=== PATIENT | female | born 1985 | race American Indian/Alaskan Native ===

== ENCOUNTER 2018-01-05 17:55 | Observation (INO) | payer BC ==
[2018-01-05] MEDS ORDERED: Sodium Chloride 0.9% 1,000 ML IV ONE (18:20)
--- NOTE | 2018-01-05 18:22 | EDM.PDOC ---
ED HPI GENERAL MEDICAL PROBLEM - General Chief Complaint: Abdominal Pain Stated Complaint: ABDOMINAL PAIN Time Seen by Provider: 01/05/18 18:19 Source of Information: Reports: Patient History Limitations: Reports: No Limitations - History of Present Illness INITIAL COMMENTS - FREE TEXT/NARRATIVE: HISTORY AND PHYSICAL: History of present illness: Patient is a 32-year-old female who presents to the emergency room today with complaints of upper abdominal pain, nausea, vomiting and dizziness since this morning. She denies any fever, chills, chest pain, shortness of breath or cough. Denies any diarrhea or constipation. States she did have a normal bowel movement this afternoon and did not note any blood. Denies any dysuria or changes in her menstrual cycle. reports that she has a history of stomach ulcers; but is unsure as they have come from the [facility] and do not have labs/imaging that have been done to "actually diagnose this". Review of systems: As per history of present illness and below otherwise all systems reviewed and negative. Past medical history: As per history of present illness and as reviewed below otherwise noncontributory. Surgical history: As per history of present illness and as reviewed below otherwise noncontributory. Social history: No reported history of drug or alcohol abuse. Family history: As per history of present illness and as reviewed below otherwise noncontributory. Physical exam: General: Well-developed and well-nourished although thin, 32-year-old female. Alert and oriented. Nontoxic appearing and mildly uncomfortable. HEENT: Atraumatic, normocephalic, pupils equal and reactive bilaterally, negative for conjunctival pallor or scleral icterus, mucous membranes moist, throat clear, neck supple, nontender, trachea midline. No drooling or trismus noted. No meningeal signs Lungs: Clear to auscultation, breath sounds equal bilaterally, chest nontender. Heart: S1S2, regular rate and rhythm without overt murmur Abdomen: Soft, nondistended, epigastric tenderness with palpation. Negative for masses or hepatosplenomegaly. Negative for costovertebral tenderness. Pelvis: Stable nontender. Genitourinary: Deferred. Rectal: Deferred. Skin: Intact, warm, dry. No lesions or rashes noted. Extremities: Atraumatic, negative for cords or calf pain. Neurovascular unremarkable. Neuro: Awake, alert, oriented. Cranial nerves II through XII unremarkable. Cerebellum unremarkable. Motor and sensory unremarkable throughout. Exam nonfocal. Notes: After IV fluids the patient's blood pressure is coming up. Labs are currently pending. 2109: WBC 18, CT shows appendicitis with stranding. Patient was made aware of these findings. Rates pain still at 7/10. 2119: Dr. Calderon was consulted on this case. She will come in to evaluate patient. 2129: Dr Calderon here to see patient. Diagnostics: CBC, CMP, H.Pylori, UA, HCGU, CT abd/pelvis Therapeutics: NS, Zofran, GI cocktail Impression: + H.Pylori Appendicitis Plan: Patient will be under Dr Calderon's care for pending surgery Definitive disposition and diagnosis as appropriate pending reevaluation and review of above. Onset: Today Duration: Hour(s): Location: Reports: Abdomen Quality: Reports: Sharp Severity: Severe Associated Symptoms: Reports: Nausea/Vomiting, Other (Dizziness). Denies: Confusion, Chest Pain, Cough, cough w sputum, Diaphoresis, Fever/Chills, Headaches, Loss of Appetite, Rash, Seizure, Shortness of Breath, Syncope, Weakness Left Upper Abdominal Pain Score (Numeric/FACES): 8 - Related Data Allergies Allergy/AdvReac Type Severity Reaction Status Date / Time No Known Allergies Allergy Verified 01/05/18 18:50 Home Meds: Home Meds . [No Known Home Meds] 01/05/18 [History] ED ROS GENERAL - Review of Systems Review Of Systems: ROS reveals no pertinent complaints other than HPI. ED EXAM, GI/ABD - Physical Exam Exam: See Below (See dictation) Course - Vital Signs Last Recorded V/S: Last Vital Signs Temp 99.8 F 01/05/18 18:51 Pulse 61 01/05/18 19:26 Resp 18 01/05/18 19:26 BP 82/47 L 01/05/18 19:26 Pulse Ox 100 01/05/18 19:26 - Orders/Labs/Meds Orders: Active Orders 24 hr Category Date Time Status Abdomen Pelvis w Cont [CT] Stat Exams 01/05/18 18:59 Taken HCG QUALITATIVE,URINE [URCHEM] Stat Lab 01/05/18 18:19 Ordered UA W/MICROSCOPIC [URIN] Stat Lab 01/05/18 18:19 Ordered Lactated Ringers [Ringers, Lactated] 1,000 ml Med 01/05/18 21:30 Ordered IV ASDIRECTED Medication Orders Lactated Ringer's (Ringers, Lactated) 1,000 mls @ 200 mls/hr IV ASDIRECTED ANDRZEJ Labs: Laboratory Tests 01/05/18 01/05/18 01/05/18 Range/Units 18:32 18:32 18:32 WBC 18.23 H (4.0-11.0) K/uL RBC 4.54 (4.30-5.90) M/uL Hgb 13.3 (12.0-16.0) g/dL Hct 38.6 (36.0-46.0) % MCV 85.0 (80.0-98.0) fL MCH 29.3 (27.0-32.0) pg MCHC 34.5 (31.0-37.0) g/dL RDW Std Deviation 41.8 (28.0-62.0) fl RDW Coeff of Harsha 14 (11.0-15.0) % Plt Count 252 (150-400) K/uL MPV 9.90 (7.40-12.00) fL Neut % (Auto) 87.7 H (48.0-80.0) % Lymph % (Auto) 4.8 L (16.0-40.0) % [place] % (Auto) 7.3 (0.0-15.0) % Eos % (Auto) 0.0 (0.0-7.0) % Baso % (Auto) 0.2 (0.0-1.5) % Neut # (Auto) 16.0 H (1.4-5.7) K/uL Lymph # (Auto) 0.9 (0.6-2.4) K/uL [place] # (Auto) 1.3 H (0.0-0.8) K/uL Eos # (Auto) 0.0 (0.0-0.7) K/uL Baso # (Auto) 0.0 (0.0-0.1) K/uL Nucleated RBC % 0.0 /100WBC Nucleated RBCs # 0 K/uL Sodium 139 (136-145) mmol/L Potassium 3.7 (3.5-5.1) mmol/L Chloride 104 (98-107) mmol/L Carbon Dioxide 21.9 (21.0-32.0) mmol/L BUN 13 (7.0-18.0) mg/dL Creatinine 0.7 (0.6-1.0) mg/dL Est Cr Clr Drug Dosing 84.15 mL/min Estimated GFR (MDRD) > 60.0 ml/min Glucose 111 H (74-106) mg/dL Calcium 8.9 (8.5-10.1) mg/dL Total Bilirubin 1.4 H (0.2-1.0) mg/dL AST 55 H (15-37) IU/L ALT 32 (14-63) IU/L Alkaline Phosphatase 94 (46-116) U/L Total Protein 7.7 (6.4-8.2) g/dL Albumin 4.3 (3.4-5.0) g/dL Globulin 3.4 (2.0-3.5) g/dL Albumin/Globulin Ratio 1.3 (1.3-2.8) HCG, Qual (NEG) Urine Color Urine Appearance Urine pH (5.0-8.0) Ur Specific [place] (1.001-1.035) Urine Protein (NEGATIVE) mg/dL Urine Glucose (UA) (NEGATIVE) mg/dL Urine Ketones (NEGATIVE) mg/dL Urine Occult Blood (NEGATIVE) Urine Nitrite (NEGATIVE) Urine Bilirubin (NEGATIVE) Urine Urobilinogen (<2.0) EU/dL Ur Leukocyte Esterase (NEGATIVE) Urine RBC (0-2/HPF) Urine WBC (0-5/HPF) Ur Epithelial Cells (NONE-FEW) Urine Bacteria (NEGATIVE) Urine Mucus (NONE-MOD) Urine HCG, Qual (NEGATIVE) H. pylori IgG Antibody POSITIVE H (NEG) 01/05/18 01/05/18 01/05/18 Range/Units 18:32 21:20 21:20 WBC (4.0-11.0) K/uL RBC (4.30-5.90) M/uL Hgb (12.0-16.0) g/dL Hct (36.0-46.0) % MCV (80.0-98.0) fL MCH (27.0-32.0) pg MCHC (31.0-37.0) g/dL RDW Std Deviation (28.0-62.0) fl RDW Coeff of Harsha (11.0-15.0) % Plt Count (150-400) K/uL MPV (7.40-12.00) fL Neut % (Auto) (48.0-80.0) % Lymph % (Auto) (16.0-40.0) % [place] % (Auto) (0.0-15.0) % Eos % (Auto) (0.0-7.0) % Baso % (Auto) (0.0-1.5) % Neut # (Auto) (1.4-5.7) K/uL Lymph # (Auto) (0.6-2.4) K/uL [place] # (Auto) (0.0-0.8) K/uL Eos # (Auto) (0.0-0.7) K/uL Baso # (Auto) (0.0-0.1) K/uL Nucleated RBC % /100WBC Nucleated RBCs # K/uL Sodium (136-145) mmol/L Potassium (3.5-5.1) mmol/L Chloride (98-107) mmol/L Carbon Dioxide (21.0-32.0) mmol/L BUN (7.0-18.0) mg/dL Creatinine (0.6-1.0) mg/dL Est Cr Clr Drug Dosing mL/min Estimated GFR (MDRD) ml/min Glucose (74-106) mg/dL Calcium (8.5-10.1) mg/dL Total Bilirubin (0.2-1.0) mg/dL AST (15-37) IU/L ALT (14-63) IU/L Alkaline Phosphatase (46-116) U/L Total Protein (6.4-8.2) g/dL Albumin (3.4-5.0) g/dL Globulin (2.0-3.5) g/dL Albumin/Globulin Ratio (1.3-2.8) HCG, Qual NEGATIVE (NEG) Urine Color YELLOW Urine Appearance CLEAR Urine pH 6.5 (5.0-8.0) Ur Specific [place] 1.015 (1.001-1.035) Urine Protein NEGATIVE (NEGATIVE) mg/dL Urine Glucose (UA) NEGATIVE (NEGATIVE) mg/dL Urine Ketones >=80 (NEGATIVE) mg/dL Urine Occult Blood NEGATIVE (NEGATIVE) Urine Nitrite NEGATIVE (NEGATIVE) Urine Bilirubin NEGATIVE (NEGATIVE) Urine Urobilinogen 0.2 (<2.0) EU/dL Ur Leukocyte Esterase NEGATIVE (NEGATIVE) Urine RBC NONE SEEN (0-2/HPF) Urine WBC 0-1 (0-5/HPF) Ur Epithelial Cells FEW (NONE-FEW) Urine Bacteria RARE (NEGATIVE) Urine Mucus LIGHT (NONE-MOD) Urine HCG, Qual NEGATIVE (NEGATIVE) H. pylori IgG Antibody (NEG) Meds: Medications Generic Name Dose Route Start Last Admin Trade Name Freq PRN Reason Stop Dose Admin Lactated Ringer's 1,000 mls @ 200 mls/hr 01/05/18 21:30 Ringers, Lactated IV ASDIRECTED ANDRZEJ Discontinued Medications Generic Name Dose Route Start Last Admin Trade Name Freq PRN Reason Stop Dose Admin Al Hydroxide/Mg Hydroxide 15 0 ml 01/05/18 18:29 01/05/18 19:30 ml/ Metoclopramide HCl 5 mg/ PO 01/05/18 18:30 5 each Lidocaine HCl 5 ml ONETIME ONE Administration Famotidine 20 mg 01/05/18 19:41 01/05/18 19:46 Pepcid IVPUSH 01/05/18 19:42 20 mg ONETIME ONE Administration Sodium Chloride 1,000 mls @ 999 mls/hr 01/05/18 18:20 01/05/18 19:24 Normal Saline IV 01/05/18 19:20 999 mls/hr STAT ONE Administration Iopamidol 60 ml 01/05/18 20:26 01/05/18 20:37 Isovue Multipack-370 (76%) IVPUSH 01/05/18 20:27 60 ml ONETIME STA Administration Morphine Sulfate 2 mg 01/05/18 19:41 01/05/18 20:58 Morphine IVPUSH 01/05/18 19:42 2 mg ONETIME ONE Administration Morphine Sulfate 2 mg 01/05/18 21:19 Morphine IVPUSH 01/05/18 21:20 ONETIME ONE Departure - Departure Time of Disposition: 21:49 Disposition: Still A Patient 32 Clinical Impression: H. pylori infection Appendicitis Qualifiers: Appendicitis type: acute appendicitis Acute appendicitis type: unspecified acute appendicitis type Qualified Code(s): K35.80 - Unspecified acute appendicitis - Discharge Information Referrals: PCP,None [Primary Care Provider] - Forms: ED Department Discharge - My Orders Last 24 Hours: My Active Orders 01/05/18 18:19 HCG QUALITATIVE,URINE [URCHEM] Stat UA W/MICROSCOPIC [URIN] Stat 01/05/18 18:59 Abdomen Pelvis w Cont [CT] Stat 01/05/18 21:30 Lactated Ringers [Ringers, Lactated] 1,000 ml IV ASDIRECTED - Assessment/Plan Last 24 Hours: My Active Orders 01/05/18 18:19 HCG QUALITATIVE,URINE [URCHEM] Stat UA W/MICROSCOPIC [URIN] Stat 01/05/18 18:59 Abdomen Pelvis w Cont [CT] Stat 01/05/18 21:30 Lactated Ringers [Ringers, Lactated] 1,000 ml IV ASDIRECTED
[2018-01-05] MEDS ORDERED: Alum Hydrox/Mag Hydrox/Simeth 15 ML, Metoclopramide 5 MG, Lidocaine 2% 5 ML PO ONE ×3 (18:29)
[2018-01-05 19:05] LABS: CHLORIDE,CL 104 mmol/L (98-107); SODIUM,NA 139 mmol/L (136-145)
[2018-01-05] MEDS ORDERED: Morphine 2 MG/ML Syringe IVPUSH ONE ×2 (19:41→21:19)
[2018-01-05] MEDS ORDERED: Famotidine 20 MG/2 ML SDV IVPUSH ONE (19:41)
[2018-01-05] MEDS ORDERED: Iopamidol 755 MG/ML 500 ML Multipack Bottle IVPUSH STA (20:26)
[2018-01-05] MEDS ORDERED: Lactated Ringers 1,000 ML IV SCH ×2 (21:30→22:00)
[2018-01-05] MEDS ORDERED: Piperacillin/Tazobactam 3.375 GM in Sodium Chloride 0.9% 50 ML IV SCH (22:00)
--- NOTE | 2018-01-05 22:02 | PCM.HP ---
H&P History of Present Illness - General Date of Service: 01/05/18 Admit Problem/Dx: Admission Diagnosis/Problem Admission Diagnosis/Problem Appendicitis Source of Information: Patient History Limitations: Reports: No Limitations - History of Present Illness Initial Comments - Free Text/Narative: Patient woke up this morning with epigastric abdominal pain. She c/o subjective fevers, chills, nausea and vomiting. The pain is made worse with straightening her torso. She was told by someone she had ulcers and should come in and be seen. Her WBC is 18K with a left shift. A CT of the abdomen pelvis showed acute non-perforated appendicitis. Left Upper Abdominal Pain Score (Numeric/FACES): 8 - Related Data Allergies/Adverse Reactions: Allergies Allergy/AdvReac Type Severity Reaction Status Date / Time No Known Allergies Allergy Verified 01/05/18 18:50 Home Medications: Home Meds . [No Known Home Meds] 01/05/18 [History] Past Medical History - Past Health History Medical/Surgical History: Denies Medical/Surgical History - Past Surgical History Head Surgeries/Procedures: Reports: Other (See Below) (cyst removal from face) Social & Family History - Tobacco Use Smoking Status *Q: Never Smoker Second Hand Smoke Exposure: No - Recreational Drug Use Recreational Drug Use: No H&P Review of Systems - Review of Systems: Review Of Systems: ROS reveals no pertinent complaints other than HPI. Exam - Exam Exam: See Below - Vital Signs Vital Signs: Last Vital Signs Temp 37.7 C 01/05/18 18:51 Pulse 61 01/05/18 19:26 Resp 18 01/05/18 19:26 BP 82/47 L 01/05/18 19:26 Pulse Ox 100 01/05/18 19:26 Weight: 45.359 kg - Exam General: Alert, Oriented, Moderate Distress HEENT: Conjunctiva Clear, Hearing Intact, Mucosa Moist & Aspers, Posterior Pharynx Clear, Pupils Equal, Pupils Reactive Lungs: Clear to Auscultation, Normal Respiratory Effort Cardiovascular: Regular Rate, Regular Rhythm GI/Abdominal Exam: Soft, No Distention, Guarding (RLQ), Rebound (RLQ) - Patient Data Lab Results Last 24 hrs: Laboratory Results - last 24 hr 01/05/18 01/05/18 01/05/18 Range/Units 18:32 18:32 18:32 WBC 18.23 H (4.0-11.0) K/uL RBC 4.54 (4.30-5.90) M/uL Hgb 13.3 (12.0-16.0) g/dL Hct 38.6 (36.0-46.0) % MCV 85.0 (80.0-98.0) fL MCH 29.3 (27.0-32.0) pg MCHC 34.5 (31.0-37.0) g/dL RDW Std Deviation 41.8 (28.0-62.0) fl RDW Coeff of Harsha 14 (11.0-15.0) % Plt Count 252 (150-400) K/uL MPV 9.90 (7.40-12.00) fL Neut % (Auto) 87.7 H (48.0-80.0) % Lymph % (Auto) 4.8 L (16.0-40.0) % [place] % (Auto) 7.3 (0.0-15.0) % Eos % (Auto) 0.0 (0.0-7.0) % Baso % (Auto) 0.2 (0.0-1.5) % Neut # (Auto) 16.0 H (1.4-5.7) K/uL Lymph # (Auto) 0.9 (0.6-2.4) K/uL [place] # (Auto) 1.3 H (0.0-0.8) K/uL Eos # (Auto) 0.0 (0.0-0.7) K/uL Baso # (Auto) 0.0 (0.0-0.1) K/uL Nucleated RBC % 0.0 /100WBC Nucleated RBCs # 0 K/uL Sodium 139 (136-145) mmol/L Potassium 3.7 (3.5-5.1) mmol/L Chloride 104 (98-107) mmol/L Carbon Dioxide 21.9 (21.0-32.0) mmol/L BUN 13 (7.0-18.0) mg/dL Creatinine 0.7 (0.6-1.0) mg/dL Est Cr Clr Drug Dosing 84.15 mL/min Estimated GFR (MDRD) > 60.0 ml/min Glucose 111 H (74-106) mg/dL Calcium 8.9 (8.5-10.1) mg/dL Total Bilirubin 1.4 H (0.2-1.0) mg/dL AST 55 H (15-37) IU/L ALT 32 (14-63) IU/L Alkaline Phosphatase 94 (46-116) U/L Total Protein 7.7 (6.4-8.2) g/dL Albumin 4.3 (3.4-5.0) g/dL Globulin 3.4 (2.0-3.5) g/dL Albumin/Globulin Ratio 1.3 (1.3-2.8) HCG, Qual (NEG) Urine Color Urine Appearance Urine pH (5.0-8.0) Ur Specific [place] (1.001-1.035) Urine Protein (NEGATIVE) mg/dL Urine Glucose (UA) (NEGATIVE) mg/dL Urine Ketones (NEGATIVE) mg/dL Urine Occult Blood (NEGATIVE) Urine Nitrite (NEGATIVE) Urine Bilirubin (NEGATIVE) Urine Urobilinogen (<2.0) EU/dL Ur Leukocyte Esterase (NEGATIVE) Urine RBC (0-2/HPF) Urine WBC (0-5/HPF) Ur Epithelial Cells (NONE-FEW) Urine Bacteria (NEGATIVE) Urine Mucus (NONE-MOD) Urine HCG, Qual (NEGATIVE) H. pylori IgG Antibody POSITIVE H (NEG) 01/05/18 01/05/18 01/05/18 Range/Units 18:32 21:20 21:20 WBC (4.0-11.0) K/uL RBC (4.30-5.90) M/uL Hgb (12.0-16.0) g/dL Hct (36.0-46.0) % MCV (80.0-98.0) fL MCH (27.0-32.0) pg MCHC (31.0-37.0) g/dL RDW Std Deviation (28.0-62.0) fl RDW Coeff of Harsha (11.0-15.0) % Plt Count (150-400) K/uL MPV (7.40-12.00) fL Neut % (Auto) (48.0-80.0) % Lymph % (Auto) (16.0-40.0) % [place] % (Auto) (0.0-15.0) % Eos % (Auto) (0.0-7.0) % Baso % (Auto) (0.0-1.5) % Neut # (Auto) (1.4-5.7) K/uL Lymph # (Auto) (0.6-2.4) K/uL [place] # (Auto) (0.0-0.8) K/uL Eos # (Auto) (0.0-0.7) K/uL Baso # (Auto) (0.0-0.1) K/uL Nucleated RBC % /100WBC Nucleated RBCs # K/uL Sodium (136-145) mmol/L Potassium (3.5-5.1) mmol/L Chloride (98-107) mmol/L Carbon Dioxide (21.0-32.0) mmol/L BUN (7.0-18.0) mg/dL Creatinine (0.6-1.0) mg/dL Est Cr Clr Drug Dosing mL/min Estimated GFR (MDRD) ml/min Glucose (74-106) mg/dL Calcium (8.5-10.1) mg/dL Total Bilirubin (0.2-1.0) mg/dL AST (15-37) IU/L ALT (14-63) IU/L Alkaline Phosphatase (46-116) U/L Total Protein (6.4-8.2) g/dL Albumin (3.4-5.0) g/dL Globulin (2.0-3.5) g/dL Albumin/Globulin Ratio (1.3-2.8) HCG, Qual NEGATIVE (NEG) Urine Color YELLOW Urine Appearance CLEAR Urine pH 6.5 (5.0-8.0) Ur Specific [place] 1.015 (1.001-1.035) Urine Protein NEGATIVE (NEGATIVE) mg/dL Urine Glucose (UA) NEGATIVE (NEGATIVE) mg/dL Urine Ketones >=80 (NEGATIVE) mg/dL Urine Occult Blood NEGATIVE (NEGATIVE) Urine Nitrite NEGATIVE (NEGATIVE) Urine Bilirubin NEGATIVE (NEGATIVE) Urine Urobilinogen 0.2 (<2.0) EU/dL Ur Leukocyte Esterase NEGATIVE (NEGATIVE) Urine RBC NONE SEEN (0-2/HPF) Urine WBC 0-1 (0-5/HPF) Ur Epithelial Cells FEW (NONE-FEW) Urine Bacteria RARE (NEGATIVE) Urine Mucus LIGHT (NONE-MOD) Urine HCG, Qual NEGATIVE (NEGATIVE) H. pylori IgG Antibody (NEG) Result Diagrams: 01/05/18 18:32 01/05/18 18:32 - Problem List (1) Appendicitis SNOMED Code(s): 80698994 ICD Code: K37 - UNSPECIFIED APPENDICITIS Status: Acute Current Visit: Yes Qualifiers: Appendicitis type: acute appendicitis Acute appendicitis type: unspecified acute appendicitis type Qualified Code(s): K35.80 - Unspecified acute appendicitis (2) H. pylori infection SNOMED Code(s): 362218269 ICD Code: A04.8 - OTHER SPECIFIED BACTERIAL INTESTINAL INFECTIONS Status: Acute Current Visit: Yes Problem List Initiated/Reviewed/Updated: Yes Orders Last 24hrs: Active Orders 24 hr Category Date Time Status Patient Status [ADT] Routine ADT 01/05/18 21:55 Ordered Verify Patient Consent Obtain [RC] ASDIRECTED Care 01/05/18 21:55 Ordered Abdomen Pelvis w Cont [CT] Stat Exams 01/05/18 18:59 Taken HCG QUALITATIVE,URINE [URCHEM] Stat Lab 01/05/18 21:20 Ordered UA W/MICROSCOPIC [URIN] Stat Lab 01/05/18 21:20 Ordered Lactated Ringers @ 125 MLS/HR(1000ml) Med 01/05/18 22:00 Ordered Lactated Ringers [Ringers, Lactated] 1,000 ml IV ASDIRECTED Lactated Ringers [Ringers, Lactated] 1,000 ml Med 01/05/18 21:30 Active IV ASDIRECTED Piperacillin/Tazobactam [Piperacil-Tazobact] 3.375 gm Med 01/05/18 22:00 Ordered Sodium Chloride 0.9% [Normal Saline] 50 ml IV Q8H Sequential Compression Device [OM.PC] Routine Oth 01/05/18 21:55 Ordered Resuscitation Status Routine Resus Stat 01/05/18 21:55 Ordered Medication Orders Lactated Ringer's (Ringers, Lactated) 1,000 mls @ 200 mls/hr IV ASDIRECTED ANDRZEJ Last Admin: 01/05/18 21:54 Dose: 200 mls/hr Lactated Ringer's (Ringers, Lactated) 1,000 mls @ 125 mls/hr IV ASDIRECTED ANDRZEJ Piperacillin Sod/Tazobactam (Sod 3.375 gm/ Sodium Chloride) 50 mls @ 100 mls/ hr IV Q8H ANDRZEJ Assessment/Plan Comment:: Patient is positive for H pylori but also has acute appendicitis. I discussed the pathophysiology of appendicitis. I explained that she will need surgery for this. We discussed the laparoscopic and open approaches. I will attempt this laparoscopically but should I be unable to complete it safely I will convert to open. We discussed the expected perioperative course and risks including bleeding, infection or damage to surrounding structures. The patient verbalized understanding and wishes to proceed.
[2018-01-05] MEDS ORDERED: Rocuronium 10 MG/ML 10 ML Syringe ONE (22:16)
[2018-01-05] MEDS ORDERED: Ondansetron 4 MG/2 ML SDV ONE (22:16)
[2018-01-05] MEDS ORDERED: fentaNYL 250 MCG/5 ML SDV ONE (22:16)
[2018-01-05] MEDS ORDERED: Lidocaine 2% 5 ML SDV ONE (22:16)
[2018-01-05] MEDS ORDERED: Midazolam 1 MG/ML 2 ML SDV ONE (22:16)
[2018-01-05] MEDS ORDERED: Propofol 200 MG/20 ML SDV ONE (22:16)
[2018-01-05] MEDS ORDERED: Bupivacaine 0.5% 30 ML SDV ONE (22:19)
[2018-01-05] MEDS ORDERED: ePHEDrine 50 MG/ML SDV ONE (22:52)
--- NOTE | 2018-01-05 23:14 | PCM.PREANE ---
Preanesthetic Assessment - Procedure Proposed Procedure: lap appy - Anesthesia/Transfusion/Family Hx Anesthesia History: Prior Anesthesia Without Reaction Family History of Anesthesia Reaction: No Transfusion History: No Prior Transfusion(s) - Review of Systems General: No Symptoms Pulmonary: No Symptoms Cardiovascular: No Symptoms Gastrointestinal: Abdominal Pain, Nausea, Vomiting Neurological: No Symptoms Other: Reports: None - Physical Assessment NPO Status Date: 01/05/18 NPO Status Time: 10:00 O2 Sat by Pulse Oximetry: 98 Respiratory Rate: 19 Vital Signs: Last Vital Signs Temp 37.7 C 01/05/18 18:51 Pulse 97 01/05/18 22:05 Resp 19 01/05/18 22:05 BP 88/55 L 01/05/18 22:05 Pulse Ox 98 01/05/18 22:05 Height: 5 ft 2 in Weight: 45.359 kg ASA Class: 1E Mental Status: Alert & Oriented x3 Airway Class: Mallampati = 1 Dentition: Reports: Normal Dentition Thyro-Mental Finger Breadths: 3 Mouth Opening Finger Breadths: 3 ROM/Head Extension: Full - Lab Values: Laboratory Last Values WBC 18.23 K/uL (4.0-11.0) H 01/05/18 18: RBC 4.54 M/uL (4.30-5.90) 01/05/18 18: Hgb 13.3 g/dL (12.0-16.0) 01/05/18 18:32 Hct 38.6 % (36.0-46.0) 01/05/18 18: MCV 85.0 fL (80.0-98.0) 01/05/18 18: MCH 29.3 pg (27.0-32.0) 01/05/18 18: MCHC 34.5 g/dL (31.0-37.0) 01/05/18 18: RDW Std Deviation 41.8 fl (28.0-62.0) 01/05/18 18: RDW Coeff of Harsha 14 % (11.0-15.0) 01/05/18 18: Plt Count 252 K/uL (150-400) 01/05/18 18: MPV 9.90 fL (7.40-12.00) 01/05/18 18: Neut % (Auto) 87.7 % (48.0-80.0) H 01/05/18 18:32 Lymph % (Auto) 4.8 % (16.0-40.0) L 01/05/18 18:32 [place] % (Auto) 7.3 % (0.0-15.0) 01/05/18 18:32 Eos % (Auto) 0.0 % (0.0-7.0) 01/05/18: Baso % (Auto) 0.2 % (0.0-1.5) 01/05/18 18:32 Neut # (Auto) 16.0 K/uL (1.4-5.7) H 01/05/18 18:32 Lymph # (Auto) 0.9 K/uL (0.6-2.4) 01/05/18 18:32 [place] # (Auto) 1.3 K/uL (0.0-0.8) H 01/05/18 18:32 Eos # (Auto) 0.0 K/uL (0.0-0.7) 01/05/18 18: Baso # (Auto) 0.0 K/uL (0.0-0.1) 01/05/18: Nucleated RBC % 0.0 /100WBC 01/05/18: Nucleated RBCs # 0 K/uL 01/05/18 18:32 Sodium 139 mmol/L (136-145) 01/05/18:32 Potassium 3.7 mmol/L (3.5-5.1) 01/05/18: Chloride 104 mmol/L (98-107) 01/05/18: Carbon Dioxide 21.9 mmol/L (21.0-32.0) 01/05/18: BUN 13 mg/dL (7.0-18.0) 01/05/18: Creatinine 0.7 mg/dL (0.6-1.0) 01/05/18 18: Est Cr Clr Drug Dosing 84.15 mL/min 01/05/18 18:32 Estimated GFR (MDRD) > 60.0 ml/min 01/05/18 18:32 Glucose 111 mg/dL (74-106) H 01/05/18 18: Calcium 8.9 mg/dL (8.5-10.1) 01/05/18 18:32 Total Bilirubin 1.4 mg/dL (0.2-1.0) H 01/05/18 18:32 AST 55 IU/L (15-37) H 01/05/18 18:32 ALT 32 IU/L (14-63) 01/05/18 18:32 Alkaline Phosphatase 94 U/L (46-116) 01/05/18 18:32 Total Protein 7.7 g/dL (6.4-8.2) 01/05/18 18:32 Albumin 4.3 g/dL (3.4-5.0) 01/05/18 18:32 Globulin 3.4 g/dL (2.0-3.5) 01/05/18 18:32 Albumin/Globulin Ratio 1.3 (1.3-2.8) 01/05/18 18:32 HCG, Qual NEGATIVE (NEG) 01/05/18 18:32 Urine Color YELLOW 01/05/18 21:20 Urine Appearance CLEAR 01/05/18 21:20 Urine pH 6.5 (5.0-8.0) 01/05/18 21:20 Ur Specific [place] 1.015 (1.001-1.035) 01/05/18 21:20 Urine Protein NEGATIVE mg/dL (NEGATIVE) 01/05/18 21:20 Urine Glucose (UA) NEGATIVE mg/dL (NEGATIVE) 01/05/18 21:20 Urine Ketones >=80 mg/dL (NEGATIVE) 01/05/18 21:20 Urine Occult Blood NEGATIVE (NEGATIVE) 01/05/18 21:20 Urine Nitrite NEGATIVE (NEGATIVE) 01/05/18 21:20 Urine Bilirubin NEGATIVE (NEGATIVE) 01/05/18 21:20 Urine Urobilinogen 0.2 EU/dL (<2.0) 01/05/18 21:20 Ur Leukocyte Esterase NEGATIVE (NEGATIVE) 01/05/18 21:20 Urine RBC NONE SEEN (0-2/HPF) 01/05/18 21:20 Urine WBC 0-1 (0-5/HPF) 01/05/18 21:20 Ur Epithelial Cells FEW (NONE-FEW) 01/05/18 21:20 Urine Bacteria RARE (NEGATIVE) 01/05/18 21:20 Urine Mucus LIGHT (NONE-MOD) 01/05/18 21:20 Urine HCG, Qual NEGATIVE (NEGATIVE) 01/05/18 21:20 H. pylori IgG Antibody POSITIVE (NEG) H 01/05/18 18:32 - Allergies Allergies/Adverse Reactions: Allergies Allergy/AdvReac Type Severity Reaction Status Date / Time No Known Allergies Allergy Verified 01/05/18 18:50 - Blood Blood Available: No - Acknowledgements Anesthesia Type Planned: General Anesthesia Pt an Appropriate Candidate for the Planned Anesthesia: Yes Alternatives and Risks of Anesthesia Discussed w Pt/Guardian: Yes Pt/Guardian Understands and Agrees with Anesthesia Plan: Yes PreAnesthesia Questionnaire - Past Health History Medical/Surgical History: Denies Medical/Surgical History - Past Surgical History Head Surgeries/Procedures: Reports: Other (See Below) (cyst removal from face) - SUBSTANCE USE Smoking Status *Q: Never Smoker Second Hand Smoke Exposure: No Recreational Drug Use History: No - HOME MEDS Home Medications: Home Meds . [No Known Home Meds] 01/05/18 [History] - CURRENT (IN HOUSE) MEDS Current Meds: Current Medications Lactated Ringer's (Ringers, Lactated) 1,000 mls @ 200 mls/hr IV ASDIRECTED ANDRZEJ Last Infusion: 01/05/18 22:00 Dose: 999 mls/hr Lactated Ringer's (Ringers, Lactated) 1,000 mls @ 125 mls/hr IV ASDIRECTED ANDRZEJ Piperacillin Sod/Tazobactam (Sod 3.375 gm/ Sodium Chloride) 50 mls @ 100 mls/ hr IV Q8H [facility] Last Admin: 01/05/18 22:04 Dose: 100 mls/hr Discontinued Medications Bupivacaine HCl (Marcaine 0.5%) Confirm Administered Dose 30 ml .ROUTE .STK-MED ONE Stop: 01/05/18 22:20 Al Hydroxide/Mg Hydroxide 15 ml/ Metoclopramide HCl 5 mg/Lidocaine HCl 5 ml 0 ml PO ONETIME ONE Stop: 01/05/18 18:30 Last Admin: 01/05/18 19:30 Dose: 5 each Ephedrine Sulfate (Ephedrine Sulfate) Confirm Administered Dose 50 mg .ROUTE .STK-MED ONE Stop: 01/05/18 22:53 Famotidine (Pepcid) 20 mg IVPUSH ONETIME ONE Stop: 01/05/18 19:42 Last Admin: 01/05/18 19:46 Dose: 20 mg Fentanyl (Sublimaze) Confirm Administered Dose 250 mcg .ROUTE .STK-MED ONE Stop: 01/05/18 22:17 Sodium Chloride (Normal Saline) 1,000 mls @ 999 mls/hr IV STAT ONE Stop: 01/05/18 19:20 Last Admin: 01/05/18 19:24 Dose: 999 mls/hr Acetaminophen (Ofirmev) Confirm Administered Dose 100 mls @ as directed IV .STK- MED ONE Stop: 01/05/18 22:21 Iopamidol (Isovue Multipack-370 (76%)) 60 ml IVPUSH ONETIME STA Stop: 01/05/18 20:27 Last Admin: 01/05/18 20:37 Dose: 60 ml Lidocaine (Xylocaine-Mpf 2%) Confirm Administered Dose 5 ml .ROUTE .STK-MED ONE Stop: 01/05/18 22:17 Midazolam HCl (Versed 1 Mg/Ml) Confirm Administered Dose 2 mg .ROUTE .STK-MED ONE Stop: 01/05/18 22:17 Morphine Sulfate (Morphine) 2 mg IVPUSH ONETIME ONE Stop: 01/05/18 19:42 Last Admin: 01/05/18 20:58 Dose: 2 mg Morphine Sulfate (Morphine) 2 mg IVPUSH ONETIME ONE Stop: 01/05/18 21:20 Ondansetron HCl (Zofran) Confirm Administered Dose 4 mg .ROUTE .STK-MED ONE Stop: 01/05/18 22:17 Propofol (Diprivan 20 Ml) Confirm Administered Dose 200 mg .ROUTE .STK-MED ONE Stop: 01/05/18 22:17 Rocuronium [place] (Zemuron) Confirm Administered Dose 100 mg .ROUTE .STK-MED ONE Stop: 01/05/18 22:17
[2018-01-05] MEDS ORDERED: Dexamethasone 4 MG/ML 5 ML MDV ONE (23:39)
--- NOTE | 2018-01-05 23:57 | PCM.OPNOTE ---
- General Post-Op/Procedure Note Date of Surgery/Procedure: 01/05/18 Operative Procedure(s): Laparoscopic appendectomy Findings: Dense adhesions of the cecum to the lateral wall of the abdomen. Non perforated appendicitis. Pre Op Diagnosis: Appendicitis Post-Op Diagnosis: Appendicitis, intra-abdominal adhesions Anesthesia Technique: General ET Tube Primary Surgeon: Bhumi Calderon Fluid Replacement, Intraop: 450 Output, Urine Amount: 500 EBL in mLs: 10 Condition: Fair Free Text/Narrative:: Intake & Output 01/05/18 01/05/18 01/06/18 14:59 22:59 06:59 Intake Total 990 Balance 990
[2018-01-05] MEDS ORDERED: diphenhydrAMINE 50 MG/ML SDV IVPUSH PRN (23:59)
[2018-01-05] MEDS ORDERED: HYDROmorphone 2 MG/ML SDV IVPUSH PRN (23:59)
[2018-01-05] MEDS ORDERED: Ondansetron 4 MG/2 ML SDV IVPUSH PRN (23:59)
[2018-01-06] MEDS ORDERED: CLARITHROMYCIN 250 MG/5 ML PO SCH (00:15)
--- NOTE | 2018-01-06 00:42 | PCM.POSTAN ---
POST ANESTHESIA ASSESSMENT - MENTAL STATUS Mental Status: Alert, Oriented - RESPIRATORY Respiratory Status: Respiratory Rate WNL, Airway Patent, O2 Saturation Stable - CARDIOVASCULAR CV Status: Pulse Rate WNL, Blood Pressure Stable - GASTROINTESTINAL GI Status: No Symptoms - PAIN Pain Score: 0 - POST OP HYDRATION Hydration Status: Adequate & Stable
--- NOTE | 2018-01-06 01:49 | OR ---
SURGEON: JAMES YUN MD DATE OF PROCEDURE: 01/05/2018 PREOPERATIVE DIAGNOSIS: Acute appendicitis. POSTOPERATIVE DIAGNOSES: 1. Acute appendicitis. 2. Intraabdominal adhesions. PROCEDURE PERFORMED: Laparoscopic appendectomy. ANESTHESIA: General endotracheal anesthesia. FLUIDS: 450 mL of crystalloid. URINE OUTPUT: 500 mL. ESTIMATED BLOOD LOSS: 10 mL. FINDINGS: Dense intraabdominal adhesions of the cecum laterally to the abdominal wall. The appendix appeared nonruptured, but grossly inflamed and dilated. COMPLICATIONS: None. INDICATIONS: The patient is a 32-year-old female who presents with a 1-day history of abdominal pain. Workup in the ER revealed a leukocytosis of 18,000 with a left shift. A CT of the abdomen and pelvis showed acute appendicitis. The patient is also positive for H. pylori. The patient and I discussed the pathophysiology of H. pylori as well as acute appendicitis. The treatment for acute appendicitis is surgery. I explained to her that she will have to be on antibiotic treatment, however, afterwards for her H. pylori infection. We discussed the laparoscopic and open approaches to an appendectomy. I will try to perform this laparoscopically, but should I be unable to perform it safely, we will convert to open. We discussed the expected perioperative course as well as the risks including bleeding, infection, or damage to surrounding structures. The patient verbalized understanding and wishes to proceed. PROCEDURE IN DETAIL: The patient was brought into the OR and placed on the OR table in supine position. A time-out was completed verifying the patient's name, age, date of , allergies, and procedure to be performed. General endotracheal anesthesia was induced. The left arm was tucked at the patient's side, and a Sinclair catheter placed. The abdomen was prepped and draped in usual standard fashion. I anesthetized an area 2 fingerbreadths below the left subcostal margin in the midclavicular line. This was anesthetized with 0.5% Marcaine plain. A 1 cm incision was made using a #11 blade. A 5 mm optical trocar was used to gain entry into the abdomen. All levels of the abdominal wall were visualized on my way in. The abdomen was then insufflated. A 5 mm 30-degree scope was inserted into the abdomen, and I inspected the area underneath my previous trocar placement. There was no damage noted to surrounding structures. A 5 mm trocar was placed under direct visualization just left and lateral to the umbilicus. A left lower quadrant 12 mm trocar was placed under direct visualization. The patient was placed in Trendelenburg position and airplaned slightly to the left. Upon inspection, the cecum was densely adhered along the lateral side to the abdominal wall. Using hook cautery and laparoscopic scissors, I started to take these attachments down along the abdominal wall. I only took down a few of these when I re-inspected the colon. I found that the appendix itself was not involved in this area of thick adhesions. It was retrocecal and I was able to manipulate it anteriorly to allow for dissection. It grossly distended, but nonperforated. The appendiceal mesentery was taken down with a Harmonic Scalpel down to the base of the appendix. The base of the appendix was cleared away from its retroperitoneal attachments. I was able to clearly identify the tenia at the base of the cecum as well as the ileocecal fat pad and terminal ileum. Once I was contident of my anatomy, an articulating endoscopic stapler was brought into the field. A 45 mm blue load of walter was fired across the base of the appendix. The transected appendix was then placed in an EndoCatch bag and removed through the 12 mm port site. I inspected my staple line. It appeared to be intact. My operative field was hemostatic. There was no evidence of damage to the areas around this. I inspected the remainder of the abdomen. No further intraabdominal adhesions were noted. The gallbladder appeared normal. There were no implants of endometriosis noted along the abdominal wall, The stomach appeared normal externally. I irrigated the abdomen with normal saline until it ran clear. My 12 mm trocar site was then closed with a 0 Vicryl suture using a Griffin-Pedro device. The 5 mm trocars were removed under direct visualization, and the abdomen allowed to desufflate. My 12 mm left lower quadrant incision was closed with interrupted 3-0 Vicryl in the subcutaneous fat and a running 4-0 Monocryl stitch in the skin. The 5 mm trocar sites were closed with interrupted 4-0 Monocryl sutures. Steri-Strips and sterile dressings were applied. The patient tolerated the procedure well and was taken to the PACU in stable condition. AUGUST ELMORE /[id number] MTDD
[2018-01-06] MEDS: Acetaminophen/HYDROcodone 325-5 MG Tab PO PRN ×2 (02:30→21:02)
[2018-01-06] MEDS: Omeprazole 20 MG Cap.CR PO SCH ×2 (06:46→16:33)
[2018-01-06] MEDS: Sucralfate 1 GM Tab PO SCH ×3 (06:46→16:33)
[2018-01-06 08:30] LABS: CHLORIDE,CL 105 mmol/L (98-107); SODIUM,NA 138 mmol/L (136-145)
[2018-01-06] MEDS ORDERED: Amoxicillin 500 MG Cap PO SCH (09:00)
[2018-01-06] MEDS ORDERED: Piperacillin/Tazobactam 3.375 GM in Sodium Chloride 0.9% 50 ML IV SCH (10:00)
--- NOTE | 2018-01-06 10:22 | PCM.SURGPN ---
- General Info Date of Service: 01/06/18 POD#: 0 Post-Op Diagnosis: Acute appendicitis Functional Status: Reports: Pain Controlled, Tolerating Diet, Ambulating, Urinating - Review of Systems General: Reports: No Symptoms Pulmonary: Reports: No Symptoms Cardiovascular: Reports: No Symptoms Gastrointestinal: Reports: Abdominal Pain (Still slightly tender in RLQ) - Patient Data Vitals - Most Recent: Last Vital Signs Temp 36.2 C 01/06/18 07:52 Pulse 72 01/06/18 07:52 Resp 22 H 01/06/18 07:52 BP 99/63 01/06/18 07:52 Pulse Ox 98 01/06/18 07:52 Weight - Most Recent: 45.359 kg I&O - Last 24 Hours: Intake & Output 01/05/18 01/06/18 01/06/18 22:59 06:59 14:59 Intake Total 990 1250 Output Total 500 1100 Balance 490 150 Lab Results Last 24 Hrs: Laboratory Results - last 24 hr 01/05/18 01/05/18 01/05/18 Range/Units 18:32 18:32 18:32 WBC 18.23 H (4.0-11.0) K/uL RBC 4.54 (4.30-5.90) M/uL Hgb 13.3 (12.0-16.0) g/dL Hct 38.6 (36.0-46.0) % MCV 85.0 (80.0-98.0) fL MCH 29.3 (27.0-32.0) pg MCHC 34.5 (31.0-37.0) g/dL RDW Std Deviation 41.8 (28.0-62.0) fl RDW Coeff of Harsha 14 (11.0-15.0) % Plt Count 252 (150-400) K/uL MPV 9.90 (7.40-12.00) fL Neut % (Auto) 87.7 H (48.0-80.0) % Lymph % (Auto) 4.8 L (16.0-40.0) % Nobles % (Auto) 7.3 (0.0-15.0) % Eos % (Auto) 0.0 (0.0-7.0) % Baso % (Auto) 0.2 (0.0-1.5) % Neut # (Auto) 16.0 H (1.4-5.7) K/uL Lymph # (Auto) 0.9 (0.6-2.4) K/uL Nobles # (Auto) 1.3 H (0.0-0.8) K/uL Eos # (Auto) 0.0 (0.0-0.7) K/uL Baso # (Auto) 0.0 (0.0-0.1) K/uL Nucleated RBC % 0.0 /100WBC Nucleated RBCs # 0 K/uL Sodium 139 (136-145) mmol/L Potassium 3.7 (3.5-5.1) mmol/L Chloride 104 (98-107) mmol/L Carbon Dioxide 21.9 (21.0-32.0) mmol/L BUN 13 (7.0-18.0) mg/dL Creatinine 0.7 (0.6-1.0) mg/dL Est Cr Clr Drug Dosing 84.15 mL/min Estimated GFR (MDRD) > 60.0 ml/min Glucose 111 H (74-106) mg/dL Calcium 8.9 (8.5-10.1) mg/dL Total Bilirubin 1.4 H (0.2-1.0) mg/dL AST 55 H (15-37) IU/L ALT 32 (14-63) IU/L Alkaline Phosphatase 94 (46-116) U/L Total Protein 7.7 (6.4-8.2) g/dL Albumin 4.3 (3.4-5.0) g/dL Globulin 3.4 (2.0-3.5) g/dL Albumin/Globulin Ratio 1.3 (1.3-2.8) HCG, Qual (NEG) Urine Color Urine Appearance Urine pH (5.0-8.0) Ur Specific [place] (1.001-1.035) Urine Protein (NEGATIVE) mg/dL Urine Glucose (UA) (NEGATIVE) mg/dL Urine Ketones (NEGATIVE) mg/dL Urine Occult Blood (NEGATIVE) Urine Nitrite (NEGATIVE) Urine Bilirubin (NEGATIVE) Urine Urobilinogen (<2.0) EU/dL Ur Leukocyte Esterase (NEGATIVE) Urine RBC (0-2/HPF) Urine WBC (0-5/HPF) Ur Epithelial Cells (NONE-FEW) Urine Bacteria (NEGATIVE) Urine Mucus (NONE-MOD) Urine HCG, Qual (NEGATIVE) H. pylori IgG Antibody POSITIVE H (NEG) 01/05/18 01/05/18 01/05/18 Range/Units 18:32 21:20 21:20 WBC (4.0-11.0) K/uL RBC (4.30-5.90) M/uL Hgb (12.0-16.0) g/dL Hct (36.0-46.0) % MCV (80.0-98.0) fL MCH (27.0-32.0) pg MCHC (31.0-37.0) g/dL RDW Std Deviation (28.0-62.0) fl RDW Coeff of Harsha (11.0-15.0) % Plt Count (150-400) K/uL MPV (7.40-12.00) fL Neut % (Auto) (48.0-80.0) % Lymph % (Auto) (16.0-40.0) % Nobles % (Auto) (0.0-15.0) % Eos % (Auto) (0.0-7.0) % Baso % (Auto) (0.0-1.5) % Neut # (Auto) (1.4-5.7) K/uL Lymph # (Auto) (0.6-2.4) K/uL [place] # (Auto) (0.0-0.8) K/uL Eos # (Auto) (0.0-0.7) K/uL Baso # (Auto) (0.0-0.1) K/uL Nucleated RBC % /100WBC Nucleated RBCs # K/uL Sodium (136-145) mmol/L Potassium (3.5-5.1) mmol/L Chloride (98-107) mmol/L Carbon Dioxide (21.0-32.0) mmol/L BUN (7.0-18.0) mg/dL Creatinine (0.6-1.0) mg/dL Est Cr Clr Drug Dosing mL/min Estimated GFR (MDRD) ml/min Glucose (74-106) mg/dL Calcium (8.5-10.1) mg/dL Total Bilirubin (0.2-1.0) mg/dL AST (15-37) IU/L ALT (14-63) IU/L Alkaline Phosphatase (46-116) U/L Total Protein (6.4-8.2) g/dL Albumin (3.4-5.0) g/dL Globulin (2.0-3.5) g/dL Albumin/Globulin Ratio (1.3-2.8) HCG, Qual NEGATIVE (NEG) Urine Color YELLOW Urine Appearance CLEAR Urine pH 6.5 (5.0-8.0) Ur Specific [place] 1.015 (1.001-1.035) Urine Protein NEGATIVE (NEGATIVE) mg/dL Urine Glucose (UA) NEGATIVE (NEGATIVE) mg/dL Urine Ketones >=80 (NEGATIVE) mg/dL Urine Occult Blood NEGATIVE (NEGATIVE) Urine Nitrite NEGATIVE (NEGATIVE) Urine Bilirubin NEGATIVE (NEGATIVE) Urine Urobilinogen 0.2 (<2.0) EU/dL Ur Leukocyte Esterase NEGATIVE (NEGATIVE) Urine RBC NONE SEEN (0-2/HPF) Urine WBC 0-1 (0-5/HPF) Ur Epithelial Cells FEW (NONE-FEW) Urine Bacteria RARE (NEGATIVE) Urine Mucus LIGHT (NONE-MOD) Urine HCG, Qual NEGATIVE (NEGATIVE) H. pylori IgG Antibody (NEG) 01/06/18 01/06/18 Range/Units 07:48 07:48 WBC 21.08 H (4.0-11.0) K/uL RBC 4.47 (4.30-5.90) M/uL Hgb 13.1 (12.0-16.0) g/dL Hct 38.3 (36.0-46.0) % MCV 85.7 (80.0-98.0) fL MCH 29.3 (27.0-32.0) pg MCHC 34.2 (31.0-37.0) g/dL RDW Std Deviation 42.5 (28.0-62.0) fl RDW Coeff of Harsha 14 (11.0-15.0) % Plt Count 236 (150-400) K/uL MPV 10.10 (7.40-12.00) fL Neut % (Auto) 95.2 H (48.0-80.0) % Lymph % (Auto) 3.2 L (16.0-40.0) % Nobles % (Auto) 1.6 (0.0-15.0) % Eos % (Auto) 0.0 (0.0-7.0) % Baso % (Auto) 0.0 (0.0-1.5) % Neut # (Auto) 20.1 H (1.4-5.7) K/uL Lymph # (Auto) 0.7 (0.6-2.4) K/uL [place]les # (Auto) 0.3 (0.0-0.8) K/uL Eos # (Auto) 0.0 (0.0-0.7) K/uL Baso # (Auto) 0.0 (0.0-0.1) K/uL Nucleated RBC % 0.0 /100WBC Nucleated RBCs # 0 K/uL Sodium 138 (136-145) mmol/L Potassium 3.8 (3.5-5.1) mmol/L Chloride 105 (98-107) mmol/L Carbon Dioxide 24.2 (21.0-32.0) mmol/L BUN 9 (7.0-18.0) mg/dL Creatinine 0.8 (0.6-1.0) mg/dL Est Cr Clr Drug Dosing 73.63 mL/min Estimated GFR (MDRD) > 60.0 ml/min Glucose 137 H (74-106) mg/dL Calcium 8.5 (8.5-10.1) mg/dL Total Bilirubin 1.7 H (0.2-1.0) mg/dL AST 52 H (15-37) IU/L ALT 29 (14-63) IU/L Alkaline Phosphatase 78 (46-116) U/L Total Protein 7.1 (6.4-8.2) g/dL Albumin 3.7 (3.4-5.0) g/dL Globulin 3.4 (2.0-3.5) g/dL Albumin/Globulin Ratio 1.1 L (1.3-2.8) HCG, Qual (NEG) Urine Color Urine Appearance Urine pH (5.0-8.0) Ur Specific [place] (1.001-1.035) Urine Protein (NEGATIVE) mg/dL Urine Glucose (UA) (NEGATIVE) mg/dL Urine Ketones (NEGATIVE) mg/dL Urine Occult Blood (NEGATIVE) Urine Nitrite (NEGATIVE) Urine Bilirubin (NEGATIVE) Urine Urobilinogen (<2.0) EU/dL Ur Leukocyte Esterase (NEGATIVE) Urine RBC (0-2/HPF) Urine WBC (0-5/HPF) Ur Epithelial Cells (NONE-FEW) Urine Bacteria (NEGATIVE) Urine Mucus (NONE-MOD) Urine HCG, Qual (NEGATIVE) H. pylori IgG Antibody (NEG) Med Orders - Current: Current Medications Hydrocodone Bitart/Acetaminophen ([place] 325-5 Mg) 2 tab PO Q4H PRN PRN Reason: Pain (moderate 4-6) Last Admin: 01/06/18 02:30 Dose: 2 tab Amoxicillin (Amoxil) 1,000 mg PO BID [facility] Last Admin: 01/06/18 08:00 Dose: 1,000 mg Clarithromycin (Biaxin) 500 mg PO BID [facility] Last Admin: 01/06/18 08:00 Dose: 500 mg Diphenhydramine HCl (Benadryl) 25 mg IVPUSH Q4H PRN PRN Reason: Itching Hydromorphone HCl (Dilaudid) 0.5 mg IVPUSH Q1H PRN PRN Reason: Pain (severe 7-10) [facility] Last Admin: 01/06/18 06:46 Dose: 20 mg Ondansetron HCl (Zofran) 4 mg IVPUSH Q6H PRN PRN Reason: Nausea/Vomiting Sucralfate (Carafate) 1 gm PO TIDAC [facility] Last Admin: 01/06/18 06:46 Dose: 1 gm Discontinued Medications Bupivacaine HCl (Marcaine 0.5%) Confirm Administered Dose 30 ml .ROUTE .STK-MED ONE Stop: 01/05/18 22:20 Clarithromycin (Biaxin 250 Mg/5 Ml Susp) 500 mg PO Q12H [facility] Last Admin: 01/06/18 02:30 Dose: 500 mg Al Hydroxide/Mg Hydroxide 15 ml/ Metoclopramide HCl 5 mg/Lidocaine HCl 5 ml 0 ml PO ONETIME ONE Stop: 01/05/18 18:30 Last Admin: 01/05/18 19:30 Dose: 5 each Dexamethasone (Dexamethasone) Confirm Administered Dose 20 mg .ROUTE .STK-MED ONE Stop: 01/05/18 23:40 Ephedrine Sulfate (Ephedrine Sulfate) Confirm Administered Dose 50 mg .ROUTE .STK-MED ONE Stop: 01/05/18 22:53 Famotidine (Pepcid) 20 mg IVPUSH ONETIME ONE Stop: 01/05/18 19:42 Last Admin: 01/05/18 19:46 Dose: 20 mg Fentanyl (Sublimaze) Confirm Administered Dose 250 mcg .ROUTE .STK-MED ONE Stop: 01/05/18 22:17 Sodium Chloride (Normal Saline) 1,000 mls @ 999 mls/hr IV STAT ONE Stop: 01/05/18 19:20 Last Admin: 01/05/18 19:24 Dose: 999 mls/hr Lactated Ringer's (Ringers, Lactated) 1,000 mls @ 200 mls/hr IV ASDIRECTED ANDRZEJ Last Infusion: 01/05/18 22:00 Dose: 999 mls/hr Lactated Ringer's (Ringers, Lactated) 1,000 mls @ 125 mls/hr IV ASDIRECTED ANDRZEJ Last Admin: 01/06/18 04:43 Dose: 125 mls/hr Piperacillin Sod/Tazobactam (Sod 3.375 gm/ Sodium Chloride) 50 mls @ 100 mls/ hr IV Q8H ANDRZEJ Stop: 01/06/18 00:23 Last Admin: 01/05/18 22:04 Dose: 100 mls/hr Acetaminophen (Ofirmev) Confirm Administered Dose 100 mls @ as directed IV .STK- MED ONE Stop: 01/05/18 22:21 Piperacillin Sod/Tazobactam (Sod 3.375 gm/ Sodium Chloride) 50 mls @ 100 mls/ hr IV Q8H [facility] Iopamidol (Isovue Multipack-370 (76%)) 60 ml IVPUSH ONETIME STA Stop: 01/05/18 20:27 Last Admin: 01/05/18 20:37 Dose: 60 ml Lidocaine (Xylocaine-Mpf 2%) Confirm Administered Dose 5 ml .ROUTE .STK-MED ONE Stop: 01/05/18 22:17 Midazolam HCl (Versed 1 Mg/Ml) Confirm Administered Dose 2 mg .ROUTE .STK-MED ONE Stop: 01/05/18 22:17 Morphine Sulfate (Morphine) 2 mg IVPUSH ONETIME ONE Stop: 01/05/18 19:42 Last Admin: 01/05/18 20:58 Dose: 2 mg Morphine Sulfate (Morphine) 2 mg IVPUSH ONETIME ONE Stop: 01/05/18 21:20 Last Admin: 01/06/18 01:25 Dose: Not Given Ondansetron HCl (Zofran) Confirm Administered Dose 4 mg .ROUTE .STK-MED ONE Stop: 01/05/18 22:17 Propofol (Diprivan 20 Ml) Confirm Administered Dose 200 mg .ROUTE .STK-MED ONE Stop: 01/05/18 22:17 Rocuronium [place] (Zemuron) Confirm Administered Dose 100 mg .ROUTE .STK-MED ONE Stop: 01/05/18 22:17 - Exam Wound/Incisions: Dressing Dry and Intact General: Alert, Oriented Lungs: Clear to Auscultation Cardiovascular: Regular Rate GI/Abdominal Exam: Soft, Other (mildly tender in RLQ and along incisions) Skin: Warm, Dry, Intact Psy/Mental Status: Alert, Normal Affect, Normal Mood - Problem List & Annotations (1) Appendicitis SNOMED Code(s): 09917545 Code(s): K37 - UNSPECIFIED APPENDICITIS Status: Acute Current Visit: Yes Qualifiers: Appendicitis type: acute appendicitis Acute appendicitis type: unspecified acute appendicitis type Qualified Code(s): K35.80 - Unspecified acute appendicitis (2) H. pylori infection SNOMED Code(s): 548008295 Code(s): A04.8 - OTHER SPECIFIED BACTERIAL INTESTINAL INFECTIONS Status: Acute Current Visit: Yes (3) Intra-abdominal adhesions SNOMED Code(s): 101053495 Code(s): K66.0 - PERITONEAL ADHESIONS (POSTPROCEDURAL) (POSTINFECTION) Status: Acute Current Visit: Yes - Problem List Review Problem List Initiated/Reviewed/Updated: Yes - My Orders Last 24 Hours: Active Orders 24 hr Category Date Time Status Patient Status [ADT] Routine ADT 01/05/18 21:55 Active Oxygen Therapy [RC] PRN Care 01/05/18 23:59 Active RT Incentive Spirometry [RC] DAILY Care 01/05/18 23:59 Active Up ad Tracee [RC] ASDIRECTED Care 01/05/18 23:59 Active Verify Patient Consent Obtain [RC] ASDIRECTED Care 01/05/18 21:55 Active Vital Signs [RC] PER UNIT ROUTINE Care 01/05/18 23:59 Active Regular Diet [DIET] Diet 01/06/18 Breakfast Active Abdomen Pelvis w Cont [CT] Stat Exams 01/05/18 18:59 Taken BILIRUBIN TOTAL [CHEM] Routine Lab 01/06/18 12:00 Ordered CBC W/O DIFF,HEMOGRAM [HEME] Routine Lab 01/06/18 12:00 Ordered HCG QUALITATIVE,URINE [URCHEM] Stat Lab 01/05/18 21:20 Ordered UA W/MICROSCOPIC [URIN] Stat Lab 01/05/18 21:20 Ordered Acetaminophen/HYDROcodone [[place] 325-5 MG] Med 01/05/18 23:59 Active 2 tab PO Q4H PRN Amoxicillin [Amoxil] Med 01/06/18 09:00 Active 1,000 mg PO BID Clarithromycin [Biaxin] Med 01/06/18 09:00 Active 500 mg PO BID HYDROmorphone [Dilaudid] Med 01/05/18 23:59 Active 0.5 mg IVPUSH Q1H PRN Omeprazole Med 01/06/18 07:30 Active 20 mg PO BIDAC Ondansetron [Zofran] Med 01/05/18 23:59 Active 4 mg IVPUSH Q6H PRN Sucralfate [Carafate] Med 01/06/18 07:30 Active 1 gm PO TIDAC diphenhydrAMINE [Benadryl] Med 01/05/18 23:59 Active 25 mg IVPUSH Q4H PRN Sequential Compression Device [OM.PC] Routine Oth 01/05/18 21:55 Ordered Resuscitation Status Routine Resus Stat 01/05/18 21:55 Ordered Medication Orders Hydrocodone Bitart/Acetaminophen ([place] 325-5 Mg) 2 tab PO Q4H PRN PRN Reason: Pain (moderate 4-6) Last Admin: 01/06/18 02:30 Dose: 2 tab Amoxicillin (Amoxil) 1,000 mg PO BID [facility] Last Admin: 01/06/18 08:00 Dose: 1,000 mg Clarithromycin (Biaxin) 500 mg PO BID [facility] Last Admin: 01/06/18 08:00 Dose: 500 mg Diphenhydramine HCl (Benadryl) 25 mg IVPUSH Q4H PRN PRN Reason: Itching Hydromorphone HCl (Dilaudid) 0.5 mg IVPUSH Q1H PRN PRN Reason: Pain (severe 7-10) Omeprazole (Omeprazole) 20 mg PO BIDAC [facility] Last Admin: 01/06/18 06:46 Dose: 20 mg Ondansetron HCl (Zofran) 4 mg IVPUSH Q6H PRN PRN Reason: Nausea/Vomiting Sucralfate (Carafate) 1 gm PO TIDAC [facility] Last Admin: 01/06/18 06:46 Dose: 1 gm - Assessment Assessment (Free Text/Narrative):: 1) Hyperbilirubinemia 2) Acute appendicitis, non-perforated 3) H pylori infection - Plan Plan (Free Text/Narrative):: On re-check of her labs this morning the patient has an increased WBC as well as bilirubin. Will recheck these labs at noon. If her WBC is not coming down will have to start her back on zosyn, IVF and monitor her closely. If her bilirubin remains elevated or keeps increasing, may need to do a RUQ US or MRCP this afternoon to rule out a hepatobiliary disease process. I inspected the gallbladder during the case and it appeared completely normal. There was no signs of cholelithiasis on CT. I suspect the elevation in her WBC was due to the stress of surgery. Her appendix was non-perforated. I think the elevation in her bilirubin is due to dehydratin and some hepatic injury from that. She is currently on triple therapy for H pylori as well as carafate. Pain: [place], IV dilaudid prn Cards: VSS GI: regular diet Renal: UOP adequate,. BUN/Cr normal ID: amoxicillin, clarithromycin, PPI for H pylori infection. Dispo: Depends on labs at noon. If improving will send home with close follow up. If worsening see above.
[2018-01-06] MEDS: Lactated Ringers 1,000 ML IV SCH ×2 (12:27→21:36)
[2018-01-06] MEDS: Piperacillin/Tazobactam 3.375 GM in Sodium Chloride 0.9% 50 ML IV SCH ×2 (12:30→19:48)
--- NOTE | 2018-01-06 16:11 | US ---
Abdominal sonogram Clinical history: Elevated bilirubin Comparison: CT scan 01/05/2018 Findings: Gallbladder is physiologically distended without calculi or bile duct dilation. No focal he patic abnormalities are seen within limits of the examination. There is no evidence of a sonographic Alan's sign on interrogation of the gallbladder. The contiguous right kidney appears normal. Impression: No bile duct dilation to explain patient's elevated bilirubin. No other significant abnor mal findings
[2018-01-06] MEDS ORDERED: HYDROmorphone 1 MG/ML Syringe IVPUSH ONE (16:17)
[2018-01-06] MEDS ORDERED: Sodium Chloride 0.9% 500 ML IV SCH (16:30)
--- NOTE | 2018-01-06 16:41 | PCM.SN ---
- Free Text/Narrative Note: Patient underwent a RUQ US that was normal. It was her first time out of bed and she had taken no pain medications throughout the day. When she got back to her room she was complaining of lower abdominal pain. Her BP 89/57. She is afebrile. On physical exam of her abdomen, she is unchanged from this morning and afternoon. She is still mild to moderately tender in the RLQ and over her incision sites. She has no rebound or guarding. She has no distension. She is awake alert and appears comfortable laying in bed. A 500ml bolus is being given now. Afterwards she will recieve some IV dilaudid to get on top of her discomfort. I explained the importance of taking at least one tablet of oral pain medication to stay on top of her discomfort. Will keep NPO other than meds and ice chips overnight. She is hungry, but I explained the need for npo to allow some bowel rest.
--- NOTE | 2018-01-06 17:08 | CT ---
EXAM DATE: 01/06/18 PATIENT'S AGE: 32 Patient: VICENTA DUENAS Facility: [place], [place] Site . Site : [id number] Study: CT Abdomen/Pelvis [id number]/31/2018 8:51:30 PM Ordering Physician: Doctor Santacruz Final Report: INDICATION: Abdominal pain with nausea and vomiting. CT ABDOMEN AND PELVIS WITH CONTRAST TECHNIQUE: Multidetector CT imaging was performed through the abdomen and pelvis following intravenous contrast administration using 60 mL Isovue 370. Oral contrast was also given. Coronal and sagittal reconstructions were generated. COMPARISON: None. FINDINGS: Lower chest: Lung bases are clear. Liver: Within normal limits. Gallbladder and bile ducts: No gallbladder wall thickening or calcified gallstones. No biliary dilation identified. Pancreas: Unremarkable. Spleen: Normal. Adrenals: No nodules or masses. Kidneys, ureters, and urinary bladder: No renal masses or hydronephrosis. No bladder mass or definite wall thickening. Gastrointestinal tract: Normal caliber bowel without obstruction. The appendix is abnormally enlarged and measures up to 12 millimeters in diameter with wall thickening and periappendiceal fat stranding, consistent with appendicitis. Vascular structures: Normal for age. Peritoneum: Small amount of free fluid in the low pelvis on the left. No loculated collection suggestive of abscess. No free air identified. Lymph nodes: No pathologically enlarged nodes identified. Reproductive organs: No pelvic masses. Bones: Normal for age. IMPRESSION: Acute appendicitis. No evidence of appendiceal perforation or abscess. Results were called to Dr. Helton at 9:10 p.m. on 01/05/2018. CAROL GARDINER MD [employer] Dictated by Jd Gardiner MD @ 01/05/2018 9:15:28 PM Dictated by: Jd Gardiner MD @ 01/05/2018 21:16:58 (Electronic Signature) Report Signed by Proxy. [facility] CENTERMaryam
[2018-01-07] MEDS: Piperacillin/Tazobactam 3.375 GM in Sodium Chloride 0.9% 50 ML IV SCH ×3 (03:58→19:56)
[2018-01-07] MEDS: Lactated Ringers 1,000 ML IV SCH ×2 (04:31→12:34)
[2018-01-07 06:28] LABS: CHLORIDE,CL 105 mmol/L (98-107); SODIUM,NA 140 mmol/L (136-145)
[2018-01-07] MEDS: Sucralfate 1 GM Tab PO SCH ×3 (06:37→17:05)
[2018-01-07] MEDS: Omeprazole 20 MG Cap.CR PO SCH ×2 (06:38→17:05)
[2018-01-07] MEDS ORDERED: Docusate Sodium 100 MG Cap PO PRN (08:49)
--- NOTE | 2018-01-07 09:03 | PCM.SURGPN ---
- General Info Date of Service: 01/07/18 Functional Status: Reports: Pain Controlled, Ambulating, Urinating - Review of Systems General: Reports: No Symptoms Pulmonary: Reports: No Symptoms Cardiovascular: Reports: No Symptoms Gastrointestinal: Reports: Abdominal Pain (Improved) - Patient Data Vitals - Most Recent: Last Vital Signs Temp 36.9 C 01/07/18 07:49 Pulse 65 01/07/18 07:49 Resp 14 01/07/18 07:49 BP 91/57 L 01/07/18 07:49 Pulse Ox 96 01/07/18 07:49 Weight - Most Recent: 45.359 kg I&O - Last 24 Hours: Intake & Output 01/06/18 01/07/18 01/07/18 22:59 06:59 14:59 Intake Total 1395 1457 Output Total 2450 1150 Balance -1055 307 Lab Results Last 24 Hrs: Laboratory Results - last 24 hr 01/06/18 01/06/18 01/07/18 Range/Units 11:50 11:50 05:35 WBC 23.06 H 17.26 H (4.0-11.0) K/uL RBC 4.52 3.94 L (4.30-5.90) M/uL Hgb 13.2 11.6 L (12.0-16.0) g/dL Hct 38.5 33.8 L (36.0-46.0) % MCV 85.2 85.8 (80.0-98.0) fL MCH 29.2 29.4 (27.0-32.0) pg MCHC 34.3 34.3 (31.0-37.0) g/dL RDW Std Deviation 42.5 43.2 (28.0-62.0) fl RDW Coeff of Harsha 14 14 (11.0-15.0) % Plt Count 233 231 (150-400) K/uL MPV 10.20 10.10 (7.40-12.00) fL Nucleated RBC % 0.0 0.0 /100WBC Nucleated RBCs # 0 0 K/uL Sodium (136-145) mmol/L Potassium (3.5-5.1) mmol/L Chloride (98-107) mmol/L Carbon Dioxide (21.0-32.0) mmol/L BUN (7.0-18.0) mg/dL Creatinine (0.6-1.0) mg/dL Est Cr Clr Drug Dosing mL/min Estimated GFR (MDRD) ml/min Glucose (74-106) mg/dL Calcium (8.5-10.1) mg/dL Total Bilirubin 1.7 H (0.2-1.0) mg/dL AST (15-37) IU/L ALT (14-63) IU/L Alkaline Phosphatase (46-116) U/L Total Protein (6.4-8.2) g/dL Albumin (3.4-5.0) g/dL Globulin (2.0-3.5) g/dL Albumin/Globulin Ratio (1.3-2.8) 01/07/18 Range/Units 05:35 WBC (4.0-11.0) K/uL RBC (4.30-5.90) M/uL Hgb (12.0-16.0) g/dL Hct (36.0-46.0) % MCV (80.0-98.0) fL MCH (27.0-32.0) pg MCHC (31.0-37.0) g/dL RDW Std Deviation (28.0-62.0) fl RDW Coeff of Harsha (11.0-15.0) % Plt Count (150-400) K/uL MPV (7.40-12.00) fL Nucleated RBC % /100WBC Nucleated RBCs # K/uL Sodium 140 (136-145) mmol/L Potassium 3.6 (3.5-5.1) mmol/L Chloride 105 (98-107) mmol/L Carbon Dioxide 24.4 (21.0-32.0) mmol/L BUN 13 (7.0-18.0) mg/dL Creatinine 0.7 (0.6-1.0) mg/dL Est Cr Clr Drug Dosing 84.15 mL/min Estimated GFR (MDRD) > 60.0 ml/min Glucose 92 (74-106) mg/dL Calcium 8.2 L (8.5-10.1) mg/dL Total Bilirubin 1.4 H (0.2-1.0) mg/dL AST 42 H (15-37) IU/L ALT 20 (14-63) IU/L Alkaline Phosphatase 64 (46-116) U/L Total Protein 6.1 L (6.4-8.2) g/dL Albumin 3.1 L (3.4-5.0) g/dL Globulin 3.0 (2.0-3.5) g/dL Albumin/Globulin Ratio 1.0 L (1.3-2.8) Med Orders - Current: Current Medications Hydrocodone Bitart/Acetaminophen ([place] 325-5 Mg) 2 tab PO Q4H PRN PRN Reason: Pain (moderate 4-6) Last Admin: 01/06/18 21:02 Dose: 1 tab Diphenhydramine HCl (Benadryl) 25 mg IVPUSH Q4H PRN PRN Reason: Itching Docusate Sodium (Colace) 100 mg PO DAILY PRN PRN Reason: Constipation Hydromorphone HCl (Dilaudid) 0.5 mg IVPUSH Q1H PRN PRN Reason: Pain (severe 7-10) Lactated Ringer's (Ringers, Lactated) 1,000 mls @ 125 mls/hr IV ASDIRECTED [facility] Last Admin: 01/07/18 04:31 Dose: 125 mls/hr Piperacillin Sod/Tazobactam (Sod 3.375 gm/ Sodium Chloride) 50 mls @ 100 mls/ hr IV Q8H [facility] Last Admin: 01/07/18 03:58 Dose: 100 mls/hr Multivitamins/Minerals/Vitamin C (Tab-A-Jewels) 1 tab PO DAILY [facility] Omeprazole (Omeprazole) 20 mg PO BIDAC [facility] Last Admin: 01/07/18 06:38 Dose: 20 mg Ondansetron HCl (Zofran) 4 mg IVPUSH Q6H PRN PRN Reason: Nausea/Vomiting Sucralfate (Carafate) 1 gm PO TIDAC [facility] Last Admin: 01/07/18 06:37 Dose: 1 gm Discontinued Medications Amoxicillin (Amoxil) 1,000 mg PO BID [facility] Last Admin: 01/06/18 08:00 Dose: 1,000 mg Bupivacaine HCl (Marcaine 0.5%) Confirm Administered Dose 30 ml .ROUTE .STK-MED ONE Stop: 01/05/18 22:20 Clarithromycin (Biaxin 250 Mg/5 Ml Susp) 500 mg PO Q12H [facility] Last Admin: 01/06/18 02:30 Dose: 500 mg Clarithromycin (Biaxin) 500 mg PO BID [facility] Last Admin: 01/06/18 08:00 Dose: 500 mg Al Hydroxide/Mg Hydroxide 15 ml/ Metoclopramide HCl 5 mg/Lidocaine HCl 5 ml 0 ml PO ONETIME ONE Stop: 01/05/18 18:30 Last Admin: 01/05/18 19:30 Dose: 5 each Dexamethasone (Dexamethasone) Confirm Administered Dose 20 mg .ROUTE .STK-MED ONE Stop: 01/05/18 23:40 Ephedrine Sulfate (Ephedrine Sulfate) Confirm Administered Dose 50 mg .ROUTE .STK-MED ONE Stop: 01/05/18 22:53 Famotidine (Pepcid) 20 mg IVPUSH ONETIME ONE Stop: 01/05/18 19:42 Last Admin: 01/05/18 19:46 Dose: 20 mg Fentanyl (Sublimaze) Confirm Administered Dose 250 mcg .ROUTE .STK-MED ONE Stop: 01/05/18 22:17 Hydromorphone HCl (Dilaudid) 0.2 mg IVPUSH ONETIME ONE Stop: 01/06/18 16:18 Last Admin: 01/06/18 17:14 Dose: 0.2 mg Sodium Chloride (Normal Saline) 1,000 mls @ 999 mls/hr IV STAT ONE Stop: 01/05/18 19:20 Last Admin: 01/05/18 19:24 Dose: 999 mls/hr Lactated Ringer's (Ringers, Lactated) 1,000 mls @ 200 mls/hr IV ASDIRECTED [facility] Last Infusion: 01/05/18 22:00 Dose: 999 mls/hr Lactated Ringer's (Ringers, Lactated) 1,000 mls @ 125 mls/hr IV ASDIRECTED [facility] Last Admin: 01/06/18 04:43 Dose: 125 mls/hr Piperacillin Sod/Tazobactam (Sod 3.375 gm/ Sodium Chloride) 50 mls @ 100 mls/ hr IV Q8H ANDR[facility] Stop: 01/06/18 00:23 Last Admin: 01/05/18 22:04 Dose: 100 mls/hr Acetaminophen (Ofirmev) Confirm Administered Dose 100 mls @ as directed IV .STK- MED ONE Stop: 01/05/18 22:21 Piperacillin Sod/Tazobactam (Sod 3.375 gm/ Sodium Chloride) 50 mls @ 100 mls/ hr IV Q8H ANDRZEJ Sodium Chloride (Normal Saline) 500 mls @ 999 mls/hr IV .BOLUS ANDRZEJ Last Admin: 01/06/18 16:33 Dose: 999 mls/hr Iopamidol (Isovue Multipack-370 (76%)) 60 ml IVPUSH ONETIME STA Stop: 01/05/18 20:27 Last Admin: 01/05/18 20:37 Dose: 60 ml Lidocaine (Xylocaine-Mpf 2%) Confirm Administered Dose 5 ml .ROUTE .STK-MED ONE Stop: 01/05/18 22:17 Midazolam HCl (Versed 1 Mg/Ml) Confirm Administered Dose 2 mg .ROUTE .STK-MED ONE Stop: 01/05/18 22:17 Morphine Sulfate (Morphine) 2 mg IVPUSH ONETIME ONE Stop: 01/05/18 19:42 Last Admin: 01/05/18 20:58 Dose: 2 mg Morphine Sulfate (Morphine) 2 mg IVPUSH ONETIME ONE Stop: 01/05/18 21:20 Last Admin: 01/06/18 01:25 Dose: Not Given Ondansetron HCl (Zofran) Confirm Administered Dose 4 mg .ROUTE .STK-MED ONE Stop: 01/05/18 22:17 Propofol (Diprivan 20 Ml) Confirm Administered Dose 200 mg .ROUTE .STK-MED ONE Stop: 01/05/18 22:17 Rocuronium [place] (Zemuron) Confirm Administered Dose 100 mg .ROUTE .STK-MED ONE Stop: 01/05/18 22:17 - Exam Wound/Incisions: Healing Well, Dressing Dry and Intact General: Alert, Oriented HEENT: Pupils Equal, Pupils Reactive, EOMI, Mucous Membr. Moist/[place] Lungs: Normal Respiratory Effort Cardiovascular: Regular Rate GI/Abdominal Exam: Soft, Non-Tender, No Distention. No: Guarding, Rigid, Rebound Skin: Warm, Dry, Intact Psy/Mental Status: Alert, Normal Affect, Normal Mood - Problem List & Annotations (1) Appendicitis SNOMED Code(s): 68191052 Code(s): K37 - UNSPECIFIED APPENDICITIS Status: Acute Current Visit: Yes Qualifiers: Appendicitis type: acute appendicitis Acute appendicitis type: unspecified acute appendicitis type Qualified Code(s): K35.80 - Unspecified acute appendicitis (2) H. pylori infection SNOMED Code(s): 820705846 Code(s): A04.8 - OTHER SPECIFIED BACTERIAL INTESTINAL INFECTIONS Status: Acute Current Visit: Yes (3) Intra-abdominal adhesions SNOMED Code(s): 341491319 Code(s): K66.0 - PERITONEAL ADHESIONS (POSTPROCEDURAL) (POSTINFECTION) Status: Acute Current Visit: Yes - Problem List Review Problem List Initiated/Reviewed/Updated: Yes - My Orders Last 24 Hours: Active Orders 24 hr Category Date Time Status Admission Status [Patient Status] [ADT] Routine ADT 01/06/18 12:11 Active Communication Order [RC] DAILY Care 01/07/18 08:48 Active May Shower [RC] ASDIRECTED Care 01/07/18 08:50 Active Advance Diet Instructions [DIET] Diet 01/07/18 Lunch Active Clear Liquid Diet [DIET] Diet 01/07/18 Breakfast Active CBC W/O DIFF,HEMOGRAM [HEME] AM Lab 01/08/18 05:11 Ordered CBC W/O DIFF,HEMOGRAM [HEME] Routine Lab 01/07/18 16:00 Ordered Docusate Sodium [Colace] Med 01/07/18 08:49 Ordered 100 mg PO DAILY PRN Lactated Ringers [Ringers, Lactated] 1,000 ml Med 01/06/18 12:15 Active IV ASDIRECTED Multivitamins [Tab-A-Jewels] Med 01/07/18 09:00 Ordered 1 tab PO DAILY Piperacillin/Tazobactam [Piperacil-Tazobact] 3.375 gm Med 01/06/18 12:15 Active Sodium Chloride 0.9% [Normal Saline] 50 ml IV Q8H Medication Orders Hydrocodone Bitart/Acetaminophen ([place] 325-5 Mg) 2 tab PO Q4H PRN PRN Reason: Pain (moderate 4-6) Last Admin: 01/06/18 21:02 Dose: 1 tab Admin: 01/06/18 02:30 Dose: 2 tab Diphenhydramine HCl (Benadryl) 25 mg IVPUSH Q4H PRN PRN Reason: Itching Docusate Sodium (Colace) 100 mg PO DAILY PRN PRN Reason: Constipation Hydromorphone HCl (Dilaudid) 0.5 mg IVPUSH Q1H PRN PRN Reason: Pain (severe 7-10) Lactated Ringer's (Ringers, Lactated) 1,000 mls @ 125 mls/hr IV ASDIRECTED [facility] Last Admin: 01/07/18 04:31 Dose: 125 mls/hr Infusion: 01/07/18 04:31 Dose: 125 mls/hr Admin: 01/06/18 21:36 Dose: 125 mls/hr Infusion: 01/06/18 20:27 Dose: 125 mls/hr Admin: 01/06/18 12:27 Dose: 125 mls/hr Piperacillin Sod/Tazobactam (Sod 3.375 gm/ Sodium Chloride) 50 mls @ 100 mls/ hr IV Q8H [facility] Last Admin: 01/07/18 03:58 Dose: 100 mls/hr Infusion: 01/06/18 20:18 Dose: 100 mls/hr Admin: 01/06/18 19:48 Dose: 100 mls/hr Infusion: 01/06/18 13:00 Dose: 100 mls/hr Admin: 01/06/18 12:30 Dose: 100 mls/hr Multivitamins/Minerals/Vitamin C (Tab-A-Jewels) 1 tab PO DAILY [facility] Omeprazole (Omeprazole) 20 mg PO BIDAC [facility] Last Admin: 01/07/18 06:38 Dose: 20 mg Admin: 01/06/18 16:33 Dose: 20 mg Admin: 01/06/18 06:46 Dose: 20 mg Ondansetron HCl (Zofran) 4 mg IVPUSH Q6H PRN PRN Reason: Nausea/Vomiting Sucralfate (Carafate) 1 gm PO TIDAC [facility] Last Admin: 01/07/18 06:37 Dose: 1 gm Admin: 01/06/18 16:33 Dose: 1 gm Admin: 01/06/18 11:27 Dose: 1 gm Admin: 01/06/18 06:46 Dose: 1 gm - Plan Plan (Free Text/Narrative):: -Pain: [place] po, IV dialdudid prn -CV: Stable. SBP in the 90s but non-tachycardic. Patient is petite and this is most likely her normal. -GI: Advance diet as tolerated today. Will continue IVF until patient taking in good po. Will start multivitamin and docusate daily. Omeprazole 20mg BID for H pylori infection as well as daily Carafate. -Renal: UOP excellent. BUN/Cr stable -ID: continue IV zosyn until WBC <13K. Will recheck WBC this evening. Will then start patient on oral medications. Plan for Flagyl 500mg QID, Clarithromycin 500mg BID. This will cover her H pylori infection and intra-abdominal infection. -Dispo: If WBC comes down to normal and tolerates po medications will most likely discharge home in morning.
--- NOTE | 2018-01-07 10:18 | PCM48HPAN ---
Post Anesthesia Note - EVALUATION WITHIN 48HRS OF ANESTHETIC Vital Signs in Normal Range: Yes Patient Participated in Evaluation: Yes Respiratory Function Stable: Yes Airway Patent: Yes Cardiovascular Function Stable: Yes Hydration Status Stable: Yes Pain Control Satisfactory: Yes Nausea and Vomiting Control Satisfactory: Yes Mental Status Recovered: Yes Resp Rate: 14
[2018-01-07] MEDS: Multivitamin Tab PO SCH (10:56)
[2018-01-07] MEDS: Acetaminophen/HYDROcodone 325-5 MG Tab PO PRN (18:32)
[2018-01-08] MEDS: Piperacillin/Tazobactam 3.375 GM in Sodium Chloride 0.9% 50 ML IV SCH (03:56)
[2018-01-08] MEDS: Sucralfate 1 GM Tab PO SCH (06:33)
[2018-01-08] MEDS: Omeprazole 20 MG Cap.CR PO SCH (06:33)
[2018-01-08] MEDS ORDERED: metroNIDAZOLE 250 MG Tab PO SCH (08:00)
--- NOTE | 2018-01-08 08:07 | PCM.DCSUM1 ---
Discharge Summary - Hospital Course Free Text/Narrative:: Patient is a 32 year old female admitted for appendicitis. Her case was remarkable for intra-abdominal adhesions along the cecum. The appendix was not perforated. She had it taken out laparoscopically. She had a WBC of 21K then 23K on POD #2. She was kept on IV antibiotics until her WBC came down. The next day it was 17K. That evening it was 13K. This morning it is 3K. She was afebrile the whole time. Her BP ran low but she was never tachycardic. She showed no other signs of systemic infection. She had an elevated bilirubin on admission. This was higher the next day. Her abdominal CT showed no hepatobiliary pathology. A RUQ US was normal. It came down with fluids. She was noted to have a positive H pylori antigen test on admission. She was placed on omeprazole BID and sucralfate. She will be transitioned to oral antibiotics this morning. She will be placed on clarithromycin and flagyl which will cover both the H pylori as well as enteric anaerobic organisms. She is tolerating a regular diet, ambulating, urinating and pain free this morning. She is cleared for discharge. - Discharge Data Discharge Date: 01/08/18 Discharge Disposition: Home, Self-Care 01 Condition: Fair - Discharge Diagnosis/Problem(s) (1) Appendicitis SNOMED Code(s): 08076927 ICD Code: K37 - UNSPECIFIED APPENDICITIS Status: Acute Current Visit: Yes Qualifiers: Appendicitis type: acute appendicitis Acute appendicitis type: unspecified acute appendicitis type Qualified Code(s): K35.80 - Unspecified acute appendicitis (2) H. pylori infection SNOMED Code(s): 271737479 ICD Code: A04.8 - OTHER SPECIFIED BACTERIAL INTESTINAL INFECTIONS Status: Acute Current Visit: Yes (3) Intra-abdominal adhesions SNOMED Code(s): 321746255 ICD Code: K66.0 - PERITONEAL ADHESIONS (POSTPROCEDURAL) (POSTINFECTION) Status: Acute Current Visit: Yes - Patient Summary/Data Operative Procedure(s) Performed: Laparoscopic appendectomy - Patient Instructions Diet: Regular Diet as Tolerated Activity: No Lifting Over 20 Pounds (for two weeks ), Rest and Relax Today Driving: Do Not Drive (for one week ) Showering/Bathing: No Showering (for 2 days), No Tub Bathing/Swimming (for two weeks ) Wound/Incision Care: Keep Operative Site/Wound Site Clean and Dry Notify Provider of: Fever, Increased Pain, Swelling and Redness, Drainage, Nausea and/or Vomiting - Discharge Plan Prescriptions/Med Rec: Clarithromycin [Biaxin] 500 mg PO BID #14 tablet metroNIDAZOLE 500 mg PO Q6H #48 tablet Omeprazole 20 mg PO BIDAC #14 cap.cr Sucralfate [Carafate] 1 gm PO QID #56 tablet Home Medications: Home Meds Clarithromycin [Biaxin] 500 mg PO BID #14 tablet 01/06/18 [Rx] Omeprazole 20 mg PO BIDAC #14 cap.cr 01/06/18 [Rx] Sucralfate [Carafate] 1 gm PO QID #56 tablet 01/06/18 [Rx] metroNIDAZOLE 500 mg PO Q6H #48 tablet 01/08/18 [Rx] Patient Handouts: Laparoscopic Appendectomy, Adult, Care After, Sucralfate tablets, Clarithromycin tablets, Omeprazole tablets (OTC) Referrals: Bhumi Calderon MD [Physician] - 01/20/18 9:00 am - Discharge Summary/Plan Comment DC Time >30 min.: No - General Info Functional Status: Reports: Pain Controlled, Tolerating Diet, Ambulating, Urinating - Review of Systems General: Reports: No Symptoms Pulmonary: Reports: No Symptoms Cardiovascular: Reports: No Symptoms Gastrointestinal: Reports: No Symptoms - Patient Data Vitals - Most Recent: Last Vital Signs Temp 37.1 C 01/08/18 04:00 Pulse 51 L 01/08/18 04:00 Resp 14 01/08/18 04:00 BP 100/55 L 01/08/18 04:00 Pulse Ox 96 01/08/18 04:00 Weight - Most Recent: 45.359 kg I&O - Last 24 hours: Intake & Output 01/07/18 01/08/18 01/08/18 22:59 06:59 14:59 Intake Total 2353 800 Output Total 1150 700 Balance 1203 100 Lab Results - Last 24 hrs: Laboratory Results - last 24 hr 01/07/18 01/08/18 Range/Units 16:06 06:31 WBC 13.32 H 8.45 (4.0-11.0) K/uL RBC 4.00 L 4.17 L (4.30-5.90) M/uL Hgb 11.7 L 12.1 (12.0-16.0) g/dL Hct 34.4 L 36.1 (36.0-46.0) % MCV 86.0 86.6 (80.0-98.0) fL MCH 29.3 29.0 (27.0-32.0) pg MCHC 34.0 33.5 (31.0-37.0) g/dL RDW Std Deviation 43.3 43.9 (28.0-62.0) fl RDW Coeff of Harsha 14 14 (11.0-15.0) % Plt Count 213 210 (150-400) K/uL MPV 9.90 10.00 (7.40-12.00) fL Nucleated RBC % 0.0 0.0 /100WBC Nucleated RBCs # 0 0 K/uL Med Orders - Current: Current Medications Hydrocodone Bitart/Acetaminophen ([place] 325-5 Mg) 2 tab PO Q4H PRN PRN Reason: Pain (moderate 4-6) Last Admin: 01/07/18 18:32 Dose: 2 tab Clarithromycin (Biaxin) 500 mg PO BID [facility] Diphenhydramine HCl (Benadryl) 25 mg IVPUSH Q4H PRN PRN Reason: Itching Docusate Sodium (Colace) 100 mg PO DAILY PRN PRN Reason: Constipation Hydromorphone HCl (Dilaudid) 0.5 mg IVPUSH Q1H PRN PRN Reason: Pain (severe 7-10) Metronidazole (Metronidazole) 500 mg PO Q6H [facility] Multivitamins/Minerals/Vitamin C (Tab-A-Jewels) 1 tab PO DAILY [facility] Last Admin: 01/07/18 10:56 Dose: 1 tab Omeprazole (Omeprazole) 20 mg PO BIDAC [facility] Last Admin: 01/08/18 06:33 Dose: 20 mg Ondansetron HCl (Zofran) 4 mg IVPUSH Q6H PRN PRN Reason: Nausea/Vomiting Sucralfate (Carafate) 1 gm PO TIDAC [facility] Last Admin: 01/08/18 06:33 Dose: 1 gm Discontinued Medications Amoxicillin (Amoxil) 1,000 mg PO BID [facility] Last Admin: 01/06/18 08:00 Dose: 1,000 mg Bupivacaine HCl (Marcaine 0.5%) Confirm Administered Dose 30 ml .ROUTE .STK-MED ONE Stop: 01/05/18 22:20 Clarithromycin (Biaxin 250 Mg/5 Ml Susp) 500 mg PO Q12H [facility] Last Admin: 01/06/18 02:30 Dose: 500 mg Clarithromycin (Biaxin) 500 mg PO BID [facility] Last Admin: 01/06/18 08:00 Dose: 500 mg Al Hydroxide/Mg Hydroxide 15 ml/ Metoclopramide HCl 5 mg/Lidocaine HCl 5 ml 0 ml PO ONETIME ONE Stop: 01/05/18 18:30 Last Admin: 01/05/18 19:30 Dose: 5 each Dexamethasone (Dexamethasone) Confirm Administered Dose 20 mg .ROUTE .STK-MED ONE Stop: 01/05/18 23:40 Ephedrine Sulfate (Ephedrine Sulfate) Confirm Administered Dose 50 mg .ROUTE .STK-MED ONE Stop: 01/05/18 22:53 Famotidine (Pepcid) 20 mg IVPUSH ONETIME ONE Stop: 01/05/18 19:42 Last Admin: 01/05/18 19:46 Dose: 20 mg Fentanyl (Sublimaze) Confirm Administered Dose 250 mcg .ROUTE .STK-MED ONE Stop: 01/05/18 22:17 Hydromorphone HCl (Dilaudid) 0.2 mg IVPUSH ONETIME ONE Stop: 01/06/18 16:18 Last Admin: 01/06/18 17:14 Dose: 0.2 mg Sodium Chloride (Normal Saline) 1,000 mls @ 999 mls/hr IV STAT ONE Stop: 01/05/18 19:20 Last Admin: 01/05/18 19:24 Dose: 999 mls/hr Lactated Ringer's (Ringers, Lactated) 1,000 mls @ 200 mls/hr IV ASDIRECTED [facility] Last Infusion: 01/05/18 22:00 Dose: 999 mls/hr Lactated Ringer's (Ringers, Lactated) 1,000 mls @ 125 mls/hr IV ASDIRECTED [facility] Last Admin: 01/06/18 04:43 Dose: 125 mls/hr Piperacillin Sod/Tazobactam (Sod 3.375 gm/ Sodium Chloride) 50 mls @ 100 mls/ hr IV Q8H ANDRZEJ Stop: 01/06/18 00:23 Last Admin: 01/05/18 22:04 Dose: 100 mls/hr Acetaminophen (Ofirmev) Confirm Administered Dose 100 mls @ as directed IV .STK- MED ONE Stop: 01/05/18 22:21 Piperacillin Sod/Tazobactam (Sod 3.375 gm/ Sodium Chloride) 50 mls @ 100 mls/ hr IV Q8H [facility] Lactated Ringer's (Ringers, Lactated) 1,000 mls @ 125 mls/hr IV ASDIRECTED [facility] Last Admin: 01/07/18 12:34 Dose: 125 mls/hr Piperacillin Sod/Tazobactam (Sod 3.375 gm/ Sodium Chloride) 50 mls @ 100 mls/ hr IV Q8H [facility] Last Admin: 01/08/18 03:56 Dose: 100 mls/hr Sodium Chloride (Normal Saline) 500 mls @ 999 mls/hr IV .BOLUS [facility] Last Admin: 01/06/18 16:33 Dose: 999 mls/hr Iopamidol (Isovue Multipack-370 (76%)) 60 ml IVPUSH ONETIME STA Stop: 01/05/18 20:27 Last Admin: 01/05/18 20:37 Dose: 60 ml Lidocaine (Xylocaine-Mpf 2%) Confirm Administered Dose 5 ml .ROUTE .STK-MED ONE Stop: 01/05/18 22:17 Midazolam HCl (Versed 1 Mg/Ml) Confirm Administered Dose 2 mg .ROUTE .STK-MED ONE Stop: 01/05/18 22:17 Morphine Sulfate (Morphine) 2 mg IVPUSH ONETIME ONE Stop: 01/05/18 19:42 Last Admin: 01/05/18 20:58 Dose: 2 mg Morphine Sulfate (Morphine) 2 mg IVPUSH ONETIME ONE Stop: 01/05/18 21:20 Last Admin: 01/06/18 01:25 Dose: Not Given Ondansetron HCl (Zofran) Confirm Administered Dose 4 mg .ROUTE .STK-MED ONE Stop: 01/05/18 22:17 Propofol (Diprivan 20 Ml) Confirm Administered Dose 200 mg .ROUTE .STK-MED ONE Stop: 01/05/18 22:17 Rocuronium [place] (Zemuron) Confirm Administered Dose 100 mg .ROUTE .STK-MED ONE Stop: 01/05/18 22:17 - Exam General: Reports: Alert, Oriented HEENT: Reports: Pupils Equal Lungs: Reports: Normal Respiratory Effort Cardiovascular: Reports: Regular Rate GI/Abdominal Exam: Soft, Non-Tender, No Distention, No Mass Back Exam: Reports: Normal Inspection Extremities: Normal Inspection Skin: Reports: Warm, Dry, Intact Wound/Incisions: Reports: Healing Well
[2018-01-08] MEDS: Multivitamin Tab PO SCH (08:12)
== END 2018-01-08 10:05 | disposition home or self-care (01) ==
LOC: MW.ED 17:55 → MW.SDS 22:31 → MW.MS 01-06 00:46 → MW.SDS 01-06 12:11
PROVIDERS: ADMIT Surgery; ATTEND Surgery
DX: K35.80 Unspecified acute appendicitis (principal); K66.0 Peritoneal adhesions (postprocedural) (postinfection); B96.81 Helicobacter pylori [H. pylori] as the cause of diseases classified elsewhere; E80.6 Other disorders of bilirubin metabolism; Z79.899 Other long term (current) drug therapy
CPT/HCPCS: 36415; 44970; 74177; 76705; 80053; 81001; 81025; 82247; 84703; 85025; 85027; 86677; A9270; J1100; J1170; J2250; J2270; J2405; J2543; J3010; J7040; J7050; J7120; Q9967; 00840; 88304; 96361; 96365; 96375; 99283; 99285-25; J2704

== ENCOUNTER 2021-09-03 09:50 | Emergency (ER) | payer BC ==
[2021-09-03] MEDS ORDERED: Sodium Chloride 0.9% 1,000 ML IV ONE (10:20)
[2021-09-03] MEDS ORDERED: Ketorolac 30 MG/ML SDV IVPUSH ONE (10:20)
[2021-09-03] MEDS ORDERED: Alum Hydro/Mag Hydro/Simeth XS 15 ML, Lidocaine 2% 5 ML PO ONE ×2 (10:25)
[2021-09-03 11:32] LABS: BLOOD UREA NITROGEN,BUN 9 mg/dL (7.0-18.0); CARBON DIOXIDE,CO2 26.9 mmol/L (21.0-32.0); CHLORIDE,CL 103 mmol/L (98-107); GLUCOSE RANDOM 103 mg/dL (74-106); LIPASE 170 U/L (73-393); POTASSIUM,K 3.6 mmol/L (3.5-5.1); SODIUM,NA 141 mmol/L (136-145)
[2021-09-03] MEDS ORDERED: Nitrofurantoin Monohydrate/Macrocrystalline 100 MG Cap PO ONE (11:53)
== END 2021-09-03 12:07 | disposition home or self-care (01) ==
LOC: MW.ED 09:50
DX: N30.01 Acute cystitis with hematuria (principal)
CPT/HCPCS: 36415; 80053; 81001; 83690; 85025; 87086; 96374; 99284; A9270; J1885; J7030